=== PATIENT | female | born 1970 | race Caucasian/White ===

== ENCOUNTER → 2016-11-30 | Outpatient (CLI) | payer BC, MEDICARE ==
[~2016-11-30] MED LIST: ANTIFUNGAL; DILT240C64 PO; FURO20TA6 PO; INSU100C11 SQ; INSU100I6 SQ; LOSA100T44 PO; POTA10TA83 PO; [UNRECOGNIZED DRUG - CODE] IJ
--- NOTE | 2016-11-30 14:37 | DI ---
INDICATION: ITS.REASON: Z01.818 PRE-TRANSPLANT EVAL FOR END STAGE RENAL DISEASE PROCEDURE: CHEST 2-VIEWS UPRIGHT (PA \T\ LAT) Encounter: Initial COMPARISON: June 21, 2013 FINDINGS: The lungs are clear without evidence of focal abnormal airspace opacity. There is no pleural effusion or pneumothorax. The heart size, mediastinal contours and pulmonary vascularity are within normal limits. There is no significant skeletal abnormality. IMPRESSION: No acute cardiopulmonary disease. .
--- NOTE | 2016-11-30 14:59 | DI ---
Indication: ITS.REASON: Z01.818 PRE-TRANSPLANT EVAL FOR END STAGE RENAL DISEASE PROCEDURE: CT ABD/PELVIS W/O CONTRAST: Encounter: Initial Comparison: None Technique: Axial CT images were performed through the abdomen and pelvis without intravenous contrast. Coronal and sagittal two-dimensional reformats. Automated Exposure Control and Iterative Reconstruction dose reducing techniques were utilized. Findings: The lung bases are clear. The unenhanced contours of the liver are unremarkable. The gallbladder appears normal. Food debris distending the stomach. The spleen, pancreas and adrenal glands are within normal limits. The kidneys appear normal morphologically. No renal stone disease or hydronephrosis. No ureteral stones. Pelvic phleboliths bladder appears normal. Uterus and ovaries are normal for age. No free fluid or bowel obstruction. Bone windows are within normal limits for age. Impression: No acute disease process seen in the abdomen or pelvis. .
== END ==
LOC: IMA 13:42
PROVIDERS: ATTEND Internal Medicine Nephrology
DX: Z01.818 Encounter for other preprocedural examination (principal); N18.6 End stage renal disease

== ENCOUNTER → 2017-01-03 | Outpatient (CLI) | payer BC, MEDICARE ==
[~2017-01-03] MED LIST changes: +LIDOCAINE 1% 30ml (STERI-PAK) ONE
--- NOTE | 2017-01-03 15:11 | DI ---
Indication: ITS.REASON: R59.9 CERVICAL LYMPHADENOPATHY PROCEDURE: CT NECK W/O CONTRAST: Encounter: Initial Technique: Axial noncontrast CT imaging through the neck was performed with coronal and sagittal two-dimensional reformats. Automated Exposure Control and Iterative Reconstruction dose reducing techniques were utilized. Comparison: None Findings: Multifocal lymphadenopathy is seen within the neck, left greater than right. Enlarged bilateral cervical level 1A and 1B lymph nodes are present. Digital Content Coordinator 1B lymph node on the right on axial image #43 measures 1.9 cm in short axis. Left level 2A lymph node on axial image #38 measures 1.6 cm in short axis. Left cervical level three, four and five adenopathy is also present ranging from 0.5 to 1.5 cm in short axis dimension. There is adenopathy visualized in the prevascular and paratracheal distributions of the superior mediastinum. The parotid glands are normal and symmetric. No mucosal based mass lesions appreciated on this noncontrast study. Lymph node in left level 2B deep to the sternocleidomastoid on image #37 measures 1.5 cm in short axis. The lung apices are clear. Bone windows are unremarkable. Impression: Fairly extensive cervical and superior mediastinal lymphadenopathy with a left-sided predominance. This raises concern for lymphoma. Metastatic disease and atypical infection such as cat scratch disease are also within the differential. Sarcoidosis, tuberculosis and Castleman's disease are also possible. Results were discussed with Dr. Bates at 1505 on January 03, 2017. .
== END ==
LOC: IMA 14:29
PROVIDERS: ATTEND Surgery
DX: R59.1 Generalized enlarged lymph nodes (principal); R59.9 Enlarged lymph nodes, unspecified

== ENCOUNTER → 2017-01-04 | Outpatient (CLI) | payer BC, MEDICARE ==
[~2017-01-04] MED LIST changes: -LIDOCAINE 1% 30ml (STERI-PAK) ONE
--- NOTE | 2017-01-04 16:13 | DI ---
Indication:ITS.REASON: R59.9 CERVICAL LYMPHADENOPATHY Procedure:US BIOPSY LYMPH NODE LYMPH NODE BIOPSY WITH ULTRASOUND GUIDANCE: After discussing the details of the procedure, including the risks, the patient wished to proceed. Informed consent was obtained. A preprocedural timeout was performed to confirm the correct patient and procedure. Using aseptic technique, local lidocaine anesthetic, and ultrasound guidance throughout, five passes using an 18-gauge 23mm throw core Biopince biopsy needle were performed to obtain five, 2 cm tissue samples from one of the enlarged lymph nodes located just inferior to the mandible on the left side of the neck. The tissue samples were divided and placed in formalin and Curtis's solution and sent to lab for the requested studies. The patient tolerated this procedure well. Following this, the patient left the imaging department in stable condition. Impression: Successful core biopsy of an enlarged lymph node located just inferior to the mandible on the left side of the neck. Daniel Ramirez RPA/EVELINA performed this under my personal supervision. .
== END ==
LOC: IMA 14:31
PROVIDERS: ATTEND Surgery
DX: I88.9 Nonspecific lymphadenitis, unspecified (principal)
CPT/HCPCS: 38505